=== PATIENT | female | born 1955 | race Two or more races ===

== ENCOUNTER 2019-04-15 21:14 | Emergency (ER) | payer MEDICAID, OTHER ==
[~2019-04-15] VITALS: Ht 162.6 cm; Wt 63.5 kg
[~2019-04-15 21:14] MED LIST: CARI350T22; HYDR-1421; NORPTMEDS CO
[2019-04-15 23:13] LABS: Basophils # (auto) 0.1 uL; Basophils % (auto) 0.9 % (0.0-2.0); Eosinophils # (auto) 0.3 uL; Hematocrit 42.5 % (36.0-46.0); Hemoglobin 14.6 g/dL (12.2-16.2); Lymphocytes # (auto) 2.3 uL; Lymphocytes % (auto) 17.9 % (10.0-50.0); Mean Corpuscular Hemoglobin 32.5 pg (28.0-32.0); Mean Corpuscular Hgb Conc. 34.4 g/dL (32.0-36.0); Mean Corpuscular Volume 94.4 fL (80.0-100.0); Monocytes # (auto) 0.7 uL; Monocytes % (auto) 5.6 % (0.0-12.0); Neutrophils # (auto) 9.5 uL; Neutrophils % (auto) 73.6 % (37.0-80.0); Platelet Count (auto) 325 10^3/uL (140-450); Red Blood Cells 4.51 10^6/uL (4.0-5.20); Red Cell Distribution Width 13.3 % (11.8-14.3); White Blood Cell 12.9 10^3/uL (4.4-10.8)
[2019-04-15 23:16] VITALS: BP 132/78
[2019-04-15 23:28] LABS: INR < 0.93 (0.9-1.15); Partial Thromboplastin Time 26.2 sec (23.64-32.05)
[2019-04-15 23:35] LABS: Alanine Aminotransferase 23 U/L (13-56); Albumin 4.3 g/dL (3.4-5.0); Anion Gap 11 (5-15); Aspartate Aminotransferase 14 U/L (15-37); BUN/Creatinine Ratio 33.8; Blood Urea Nitrogen 23 mg/dL (7-18); Calcium 9.4 mg/dL (8.5-10.1); Carbon Dioxide 22 mmol/L (21-32); Chloride 107 mmol/L (98-107); GFR African American 113 mL/min; GFR Non-African American 93 mL/min; Glucose 141 mg/dL (74-106); Sodium 140 mmol/L (136-145)
[2019-04-15 23:40] LABS: Alkaline Phosphatase 69 U/L (45-117); Bilirubin, Total 0.6 mg/dL (0.2-1.0); Total Protein 7.4 g/dL (6.4-8.2)
[2019-04-16] MEDS ORDERED: MORPHINE SULFATE 4 MG/ML SYR/VIAL IV ONE (02:15)
[2019-04-16] MEDS ORDERED: ONDANSETRON HCL 4 MG/2 ML VIAL IV ONE (02:15)
[2019-04-16] MEDS ORDERED: ONDANSETRON HCL 4 MG/2 ML VIAL IM ONE (02:45)
[2019-04-16] MEDS ORDERED: MORPHINE SULFATE 4 MG/ML SYR/VIAL IM ONE (02:45)
== END 2019-04-16 06:26 | disposition home or self-care (01) ==
LOC: ER 21:17
DX: S02.81XA Fracture of other specified skull and facial bones, right side, initial encounter for closed fracture (principal); E11.9 Type 2 diabetes mellitus without complications; I10 Essential (primary) hypertension; E78.5 Hyperlipidemia, unspecified; W19.XXXA Unspecified fall, initial encounter; Y93.89 Activity, other specified; Y99.8 Other external cause status; Y92.89 Other specified places as the place of occurrence of the external cause
CPT/HCPCS: 36415; 70450; 70486; 72125; 80053; 83735; 84484; 85025; 85610; 85730; 93005; 96372; 99284; J2270; J2405

== ENCOUNTER 2019-04-28 11:43 | Emergency (ER) | payer MEDICAID ==
[~2019-04-28] VITALS: Ht 162.6 cm; Wt 63.5 kg
[2019-04-28 11:58] VITALS: BP 137/79
[2019-04-28] MEDS ORDERED: SILVER SULFADIAZINE 1 % TOPICAL CREAM 50GM TOP ONE (14:15)
== END 2019-04-28 14:35 | disposition home or self-care (01) ==
LOC: ER 11:43
DX: T23.132A Burn of first degree of multiple left fingers (nail), not including thumb, initial encounter (principal); T31.0 Burns involving less than 10% of body surface; X10.0XXA Contact with hot drinks, initial encounter; Y93.89 Activity, other specified; Y92.89 Other specified places as the place of occurrence of the external cause; Y99.8 Other external cause status; E11.9 Type 2 diabetes mellitus without complications; E78.00 Pure hypercholesterolemia, unspecified; I10 Essential (primary) hypertension
CPT/HCPCS: 16000